=== PATIENT | male | born 1955 | race Caucasian/White ===

== ENCOUNTER 2017-12-27 15:58 | Emergency (ER) | payer SELFPAY ==
[~2017-12-27] VITALS: Ht 175.3 cm; Wt 88.5 kg
== END 2017-12-27 17:18 | disposition home or self-care (01) ==
LOC: ER 15:58
DX: K03.81 Cracked tooth (principal); F17.210 Nicotine dependence, cigarettes, uncomplicated
CPT/HCPCS: 99283; J1100; Q0163